=== PATIENT | male | born 1945 | race Caucasian/White ===

== ENCOUNTER 2016-08-29 17:07 | Emergency (ER) | payer OTHER, BC ==
[~2016-08-29] VITALS: Ht 190.5 cm; Wt 103.1 kg
[2016-08-29] MEDS ORDERED: PERCOCET 5/31 TABLET PO (22:34)
[2016-08-29] MEDS ORDERED: MOTRIN600 MG PO (22:34)
[2016-08-29] MEDS ORDERED: LIDODERM 5% P1 PATCH TD (22:35)
[2016-08-29 22:52] VITALS: BP 120/66
== END 2016-08-29 22:58 | disposition home or self-care (01) ==
LOC: RME 17:07 → EME 17:07 → RME 22:58
DX: S32.011A Stable burst fracture of first lumbar vertebra, initial encounter for closed fracture (principal); W10.8XXA Fall (on) (from) other stairs and steps, initial encounter; Y93.89 Activity, other specified; Z87.891 Personal history of nicotine dependence
CPT/HCPCS: 72131; 99281; 99284; J3010